=== PATIENT | male | born 1965 | race Hispanic/Latino ===

== ENCOUNTER 2016-11-05 06:06 | Day surgery (SDC) | payer OTHER ==
[2016-11-05] MEDS ORDERED: XYLOCAINE MPF 2% ONE (07:00)
[2016-11-05] MEDS ORDERED: WATER FOR IRRIG STERILE ONE (07:01)
[2016-11-05] MEDS ORDERED: WATER FOR IRRIG STERILE IR ONE ×2 (07:01→07:03)
--- NOTE | 2016-11-05 07:20 | Anesthesia Day of Surgery ---
Anesthesia Day of Surgery - Day of Surgery Patient Examined: Yes Patient H&P Reviewed: Yes Patient is NPO: Yes
--- NOTE | 2016-11-05 07:21 | Anesthesia Consultation ---
Anesthesia Consult and Med Hx Date of service: 11/05/16 - Airway Anesthetic Teeth Evaluation: Good ROM Head & Neck: Adequate Mental/Hyoid Distance: Adequate Mallampati Class: Class II Intubation Access Assessment: Probably Good - Pulmonary Exam CTA: Yes - Cardiac Exam Cardiac Exam: RRR - Pre-Operative Health Status ASA Pre-Surgery Classification: ASA3 Proposed Anesthetic Plan: MAC - Pulmonary Hx Sleep Apnea: Yes - Cardiovascular System Hx Hypertension: Yes - Central Nervous System Hx Neuromuscular Disorder: Yes (OA) - Endocrine Hx Non-Insulin Dependent Diabetes: Yes - Other Systems Hx Obesity: Yes
[2016-11-05] MEDS ORDERED: DIPRIVAN 10 MG/ML IV ONE ×2 (07:22)
[2016-11-05] MEDS ORDERED: NACL 0.9% 1000 ML 1,000 ML IV SCH (08:00)
--- NOTE | 2016-11-05 08:05 | Short Stay Summary ---
Short Stay Documentation - Allergies and Medications Current Medications: Allergies codeine Allergy (Mild, Verified 11/05/16 07:11) Unknown ANXIETY Home Medications Medication Instructions Recorded Confirmed Last Taken Type Adult Low Dose Aspirin EC 325 mg PO DAILY 11/05/16 11/05/16 11/05/16 History Naprosyn 1 tab PO DAILY 11/05/16 11/05/16 11/05/16 History Active Medications Sodium Chloride (Nacl 0.9% 1000 Ml) 1,000 mls @ 50 mls/hr IV DIRECT JULIO CÉSAR Stop: 11/05/16 23:59 Last Admin: 11/05/16 07:36 Dose: 50 mls/hr - Brief post op/procedure progress note Date of procedure: 11/05/16 Pre-op diagnosis: Colon cancer screening Post-op diagnosis: same (1. Diverticulosis (mild) 2. Internal hemorrhoids) Procedure: Colonoscopy Anesthesia: MAC Findings: as above Surgeon: PATTI BALDERAS Estimated blood loss: none Pathology: none Condition: stable - Disposition Condition at discharge: Stable Disposition: DISCHARGED TO HOME OR SELFCARE Short Stay Discharge Plan Activity: no restrictions Weight Bearing Status: Full Weight Bearing Diet: regular, low salt
[2016-11-05 08:29] VITALS: BP 121/89
--- NOTE | 2016-11-05 09:25 | Post Anesthesia Evaluation ---
- Post Anesthesia Evaluation Patient Participated: Yes Airway Patent: Yes Stable Respiratory Function: Yes Nausea/Vomiting: No Temp > 96.8F: Yes Pain Manageable: Yes Adequeate Hydration: Yes Anesthesia Complications: No
== END 2016-11-05 06:07 | disposition home or self-care (01) ==
LOC: GIO 06:06
PROVIDERS: ATTEND Internal Medicine Gastroenterology
DX: Z12.11 Encounter for screening for malignant neoplasm of colon (principal); K57.30 Diverticulosis of large intestine without perforation or abscess without bleeding; K64.0 First degree hemorrhoids; K21.9 Gastro-esophageal reflux disease without esophagitis; M19.90 Unspecified osteoarthritis, unspecified site; E11.9 Type 2 diabetes mellitus without complications; I10 Essential (primary) hypertension; E66.9 Obesity, unspecified; Z88.5 Allergy status to narcotic agent; Z90.49 Acquired absence of other specified parts of digestive tract; Z98.890 Other specified postprocedural states; Z83.71 Family history of colonic polyps; Z68.38 Body mass index [BMI] 38.0-38.9, adult
CPT/HCPCS: 45378; J2704; J7030

== ENCOUNTER 2017-09-01 08:51 | Outpatient (CLI) | payer OTHER ==
--- NOTE | 2017-09-01 13:23 | Ultrasound Report ---
TESTICULAR ULTRASOUND WITH DUPLEX DOPPLER ULTRASOUND: 09/01/17 CLINICAL: Bilateral pain and a left palpable nodule. FINDINGS: High resolution ultrasound demonstrated normal testes with normal echogenicity size and contours. A cyst of the left appendix testis measures 3 mm. No testicular mass. The right testis measured 5.1 x 2.3 x 3.4cm. The left testis measured 4.3 x 2.1 x 2.9cm. Prominent bilateral scrotal vessels and inguinal vessels consistent with bilateral varicoceles. Small bilateral hydroceles, right larger than left. The right epididymis is normal. A left epididymal cyst measures 4 x 4 by 3 mm. Both testes and epididymes demonstrated normal blood flow by color and duplex Doppler with normal spectral waveforms. No inguinal hernia identified. IMPRESSION: 1. Bilateral varicoceles and small bilateral hydroceles. 2. No testicular mass. 3. A benign 4 mm left epididymal cyst.
== END 2017-09-01 08:52 | disposition home or self-care (01) ==
LOC: SPVWC 08:51
PROVIDERS: ATTEND Internal Medicine
DX: N44.2 Benign cyst of testis (principal); N50.3 Cyst of epididymis; N43.3 Hydrocele, unspecified; I10 Essential (primary) hypertension; E11.9 Type 2 diabetes mellitus without complications
CPT/HCPCS: 76870